=== PATIENT | female | born 1990 | race Two or more races ===

== ENCOUNTER 2025-04-07 13:20 | Emergency (ER) | payer MEDICAID ==
[~2025-04-07] VITALS: Ht 162.6 cm; Wt 97.7 kg
[2025-04-07 13:25] VITALS: BP 130/78; PULSE 71; TEMP 97.6; O2SAT 99
--- NOTE | 2025-04-07 14:27 | Physician Documentation ---
HPI ~ General Chief Complaint: Medication Request Stated Complaint: MED REQUEST Time Seen by MD: 14:10 History of Present Illness HPI Comments Patient is a 34-year-old female that presents to the emergency department for evaluation of medication refill. Patient reports that she is new to the areas in the last couple of days she is coming from [facility] and does not h ave a provider here does not have local family our local resources. Patient reports that she was previously diagnosed with epilepsy but has been out of her medication for several months. Patient reports her last seizure was 1 month ago. Patient reports that seizures are brief usually associated with clonic tonic activity and resolves quickly. 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 Patient does not report any other symptoms at this time. Medication Reconciliation Allergies: Coded Allergies: No Known Allergies (Unverified , 04/07/25) Review of Systems ROS As stated above in the HPI, otherwise all systems are reviewed and negative. Physical Exam Physical Exam Vital Signs: Temperature: 97.6, Source: Temporal, Heart Rate: 71, Respiratory Rate: 16, BP: 130/78, Pulse Oximetry: 99, Weight: 97.730 Physical Exam VITALS: Reviewed and as above. GENERAL: Alert, no apparent distress although presents mildly tearful when speaking. HEENT: Normocephalic, atraumatic, PERRL, EOMI, dry mucosa, no erythema RESPIRATORY: Lungs clear, normal breath sounds, no respiratory distress. CHEST: No accessory muscle use, no retractions CV: Regular rate, rhythm, no edema, no murmur, No: JVD GI: Soft, non-tender, bowels sounds present, no rebound, guarding, or rigidity BACK: No CVA tenderness, or swelling MUSCULOSKELETAL No deformities, no edema SKIN: Warm and dry, no rash NEURO: Oriented x4, No motor or sensory deficit PSYCH: Normal mood and affect, no agitation Progress Results/Orders Results/Orders Vital Signs 04/07/25 13:25 Temp 97.6 Pulse 71 Resp 16 B/P (MAP) 130/78 Pulse Ox 99 Medical Decision Making Findings She reported to the emergency department for medication refill. Unable to confirm patient's diagnosis of epilepsy or any previous history of being prescribed antiepileptic medications. Patient was seen by another provider return crease today. I was able to speak with that provider she confirmed that she also was not able to confirm a history of epilepsy and was unable to prescribed medications that the patient was requesting at that time either. Provider reports that the patient told her that the last place that she received prescriptions and a diagnosis for her epilepsy was in [place]. Patient does not recall the name of the clinic and we are currently unable to locate the name of the provider or any history of medications for epilepsy or any type of seizure disorder being prescribed to the patient. At this time I am going to refer the patient back to [facility] primary [facility] care evaluation. Have provided the patient strict instructions for return precautions to the emergency department. Told the patient she is always welcome to return to the emergency department if she has any additional needs or any concerns the need to be evaluated by us here and we are happy to assist her. Departure Disposition: HOME / SELF CARE / HOMELESS Impression: Primary Impression: General medical exam Additional Impression: Medication refill Discharge Instructions: Medical Screening Exam Additional Instructions: She reported to the emergency department for medication refill. Unable to confirm patient's diagnosis of epilepsy or any previous history of being prescribed antiepileptic medications. Patient was seen by another provider return crease today. I was able to speak with that provider she confirmed that she also was not able to confirm a history of epilepsy and was unable to prescribed medications that the patient was requesting at that time either. Provider reports that the patient told her that the last place that she received prescriptions and a diagnosis for her epilepsy was in [place]. Patient does not recall the name of the clinic and we are currently unable to locate the name of the provider or any history of medications for epilepsy or any type of seizure disorder being prescribed to the patient. At this time I am going to refer the patient back to [facility] care evaluation. Have provided the patient strict instructions for return precautions to the emergency department. Told the patient she is always welcome to return to the emergency department if she has any additional needs or any concerns the need to be evaluated by us here and we are happy to assist her. Please follow up with her primary care provider or the [facility]. Please return to the emergency department if you have any worsening symptoms or any additional concerning symptoms that we discussed here today. Referrals: NO PRIMARY CARE PROVIDER (PCP) Education Educated: Patient Educated regarding: diagnosis, treatment, need for follow up Signature Scribe Signature: Scribed for Ron Thomson by SUZANNE Nelson . 04/07/25 14:37 Attestation: Scribed for Ron Thomson by SUZANNE Nelson . 04/07/25 14:37 RON THOMSON Apr 07, 2025 14:27
[2025-04-07 14:45] VITALS: RESP 16
== END 2025-04-07 14:48 | disposition home or self-care (01) ==
LOC: ER 13:21
DX: Z00.00 Encounter for general adult medical examination without abnormal findings (principal); G40.909 Epilepsy, unspecified, not intractable, without status epilepticus; Z76.0 Encounter for issue of repeat prescription
CPT/HCPCS: 99281